=== PATIENT | male | born 1950 | race Caucasian/White ===

== ENCOUNTER → 2016-09-11 | Outpatient (CLI) | payer BC ==
[~2016-09-11] MED LIST: AMLO-114 PO; ATOR-22 PO; CARB25TA12 PO; CMD2 PO; HYDR-4079 PO; LEVO150T PO; LISI-461 PO; METH-307 PO; METO1TAB69 PO; OXYSR/20 PO; RFM300 PO; SNK PO
--- NOTE | 2016-09-11 11:50 | DIAGNOSTIC IMAGING REPORT ---
SI JOINTS 3 OR MORE VIEWS CLINICAL HISTORY: M13.0 Unspecified polyarthropathy or polyarthritis, site unspecific pain COMPARISON STUDY: None FINDINGS: The sacroiliac joints are unremarkable. No evidence for sacral ilial ankylosis or fusion. Sacral foramina are symmetric. Degenerative change of the lumbar spine is noted. IMPRESSION: 1. Negative SI joints. 2. Degenerative change lower lumbar spine. The above report was generated using voice recognition software. It may contain grammatical, syntax or spelling errors. Electronically signed by: Fazal Ch M.D. 09/11/2016 11:48 AM Dictated Date/Time: 09/11/2016 11:47 AM
--- NOTE | 2016-09-11 11:56 | DIAGNOSTIC IMAGING REPORT ---
L-SPINE MIN 4 VIEWS ROUTINE CLINICAL HISTORY: 66 years-old Male presenting with Unspecified polyarthropathy or polyarthritis, site unspecified. TECHNIQUE: Frontal, lateral, and bilateral oblique views of the lumbar spine were obtained. COMPARISON: None. FINDINGS: Vertebral body heights and alignment preserved. Intervertebral disc height loss at L3-4 through L5-S1, where there are multilevel degenerative changes including osteophytosis and endplate sclerosis. Gas noted within the intervertebral disc spaces at these levels. No radiographic evidence of acute fracture or subluxation. Osseous neural foraminal narrowing suspected at L4-5 and to a greater degree at L5-S1. Moderate stool burden. Nonobstructive bowel gas pattern. Calcification in the right upper quadrant with a circular morphology may suggest calcification within the wall of the gallbladder. IMPRESSION: 1. Multilevel degenerative changes from L3-4 through L5-S1 with osseous neural foraminal narrowing suspected at L4-5 and to a greater degree at L5-S1. 2. Findings suggestive of porcelain gallbladder. Further evaluation with ultrasound or CT to be considered for further confirmation. The report will be called/faxed according to standard departmental protocol. Electronically signed by: Iain Burton M.D. 09/11/2016 11:55 AM Dictated Date/Time: 09/11/2016 11:47 AM
--- NOTE | 2016-09-11 12:03 | DIAGNOSTIC IMAGING REPORT ---
RIGHT HAND MIN 3 VIEWS ROUTINE CLINICAL HISTORY: Polyarthropathy. Right hand pain COMPARISON: None. DISCUSSION: There is moderate to marked joint space narrowing involving the second and third carpal phalangeal joints. There are advanced osteoarthritic type changes involving the first carpometacarpal joint. There are second and third metatarsal head osteophytes. There is a small erosion involving the base of the proximal phalanx of the thumb. There are ulnar styloid erosions. IMPRESSION: 1. No acute fractures 2. Mixed arthritic pattern. Advanced osteoarthritic changes involving the first carpometacarpal joint. Joint space narrowing and osteophyte formation involving the second and third metacarpal phalangeal joints. Bony erosions involving the ulnar styloid and proximal phalanx of the thumb Electronically signed by: Tima Livingston M.D. 09/11/2016 12:02 PM Dictated Date/Time: 09/11/2016 12:00 PM
[2016-09-11 12:46] LABS: RHEUMATOID FACTOR < 10.0 U/mL (0-15); TOTAL IRON BINDING CAPACITY 392 mcg/dl (250-450)
== END | disposition home or self-care (01) ==
LOC: C.RAD1850 10:48
PROVIDERS: ATTEND Internal Medicine Rheumatology
DX: L40.8 Other psoriasis (principal); M13.0 Polyarthritis, unspecified; M54.5 Low back pain; M19.041 Primary osteoarthritis, right hand; M51.37 Other intervertebral disc degeneration, lumbosacral region

== ENCOUNTER → 2016-10-06 | Outpatient (CLI) | payer BC ==
--- NOTE | 2016-10-06 08:55 | DIAGNOSTIC IMAGING REPORT ---
MRI OF THE SACROILIAC JOINTS WITHOUT CONTRAST CLINICAL HISTORY: Chronic low back pain. Possible psoriatic arthritis. COMPARISON STUDY: Lumbar spine and sacroiliac joint radiographs September 11, 2016. TECHNIQUE: Utilizing a 1.5 Elena magnet and dedicated coil, multiplanar, multi echo imaging of the bilateral sacroiliac joints was performed without IV contrast including STIR sequences. FINDINGS: The sacroiliac joints are intact without evidence for ankylosis. There is no increased T2 signal adjacent to the sacroiliac joints to suggest sacroiliitis. There is mild osteoarthritis of the bilateral sacroiliac joints. No areas of suspicious marrow replacement are present. There is no significant marrow edema. Artifact adjacent to the left hip is due to surgical material. Multilevel degenerative changes within visualized portions of the lumbar spine are suboptimally assessed on this exam. There is no presacral abnormality. Visualized portions of the pelvis are unremarkable. An ostomy is incidentally noted. No mass or fluid collection is shown adjacent to the sacroiliac joints. IMPRESSION: 1. No evidence of sacroiliitis. 2. 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 3. No fracture or suspicious marrow replacement. Electronically signed by: Holden Beauchamp M.D. 10/06/2016 8:54 AM Dictated Date/Time: 10/06/2016 8:46 AM
--- NOTE | 2016-10-06 09:19 | DIAGNOSTIC IMAGING REPORT ---
BILIARY ULTRASOUND CLINICAL HISTORY: R93.2 Abnormal x-ray of [id number] COMPARISON STUDY: No previous studies for comparison. FINDINGS: The pancreas is poorly visualized. No focal hepatic masses are evident. There is diffuse shadowing from the gallbladder fossa. This could indicate a stone filled gallbladder, or gallbladder wall calcification. CT scan might be of benefit for differentiation. There is no ductal dilatation. The common bile duct measures 3 mm. There is no right-sided hydronephrosis. IMPRESSION: 1. Diffuse shadowing arising from the gallbladder. This could indicate either a stone filled gallbladder, or gallbladder wall calcification. A CT scan might be of benefit in making this differentiation. 2. No ductal dilatation. Electronically signed by: Tima Livingston M.D. 10/06/2016 9:18 AM Dictated Date/Time: 10/06/2016 9:14 AM
== END | disposition home or self-care (01) ==
LOC: C.MRI 07:45
PROVIDERS: ATTEND Internal Medicine Rheumatology
DX: R93.2 Abnormal findings on diagnostic imaging of liver and biliary tract (principal); M54.5 Low back pain